=== PATIENT | female | born 1965 | race Caucasian/White ===

== ENCOUNTER 2016-09-10 00:51 | Emergency (ER) | payer OTHER ==
[~2016-09-10 00:51] MED LIST: ALORA1 EAC3 TOP; ASPIR 8181 MG PO; CEFPODOXIME PR200 MG PO; COGENTIN 2MG TAB2 MG PO; CYMBALTA60 MG PO; GABADONE CAPSU1 EACH PO; HUMALOG100 UNIT/2; KLONOPIN TAB 00.5 MG PO; LEVAQUIN500 MG PO; PLAVIX 75 MG TA75 MG PO; PLAVIX75 MG PO; PREVACID30 MG PO; ROPINIROLE HCL1 MG PO; SINGULAIR10 MG PO; SYNTHROID100 MCG PO; ZOCOR 40 MG TAB40 MG PO
[2016-09-10 02:23] LABS: HEMOGLOBIN 10.5 gm/dl (12.3-15.3); RED BLOOD COUNT 3.4 M/UL (4.00-5.10); WHITE BLOOD COUNT 9.2 K/UL (4.5-11.0)
== END 2016-09-10 06:28 | disposition home or self-care (01) ==
LOC: ER1 00:51
PROVIDERS: Physician Assistant
DX: E10.649 Type 1 diabetes mellitus with hypoglycemia without coma (principal); J69.0 Pneumonitis due to inhalation of food and vomit; I25.10 Atherosclerotic heart disease of native coronary artery without angina pectoris; E78.5 Hyperlipidemia, unspecified; G43.909 Migraine, unspecified, not intractable, without status migrainosus; J44.9 Chronic obstructive pulmonary disease, unspecified; F17.210 Nicotine dependence, cigarettes, uncomplicated; Z95.1 Presence of aortocoronary bypass graft; I25.2 Old myocardial infarction; Z88.1 Allergy status to other antibiotic agents
CPT/HCPCS: 36415; 36600; 71010; 80053; 82550; 82553; 82803; 82962; 83605; 83874; 84484; 85025; 87040; 93005; 96361; 96374; 99284; J0696

== ENCOUNTER → 2016-10-26 | Outpatient (CLI) | payer OTHER | LOC: KOH-I 15:17 | DX: R07.9 Chest pain, unspecified (principal) | CPT/HCPCS: 71020 ==